=== PATIENT | female | born 1950 | race Caucasian/White ===

== ENCOUNTER 2017-01-08 07:40 | Day surgery (SDC) | payer OTHER ==
[~2017-01-08] VITALS: Ht 170.2 cm; Wt 54.8 kg
[~2017-01-08 07:40] MED LIST: DUONEB DPS3 ML IH; FLEET ENEMA133 ML PR; FOLVITE-DPS1 MG PO; IBUPROFEN200 MG PO; LINZESS290 MCG PO; MIRALAX PACKET17 GM PO; MOVANTIK25 MG PO; MS CONTIN DPS60 MG PO; MSIR DPS15 MG PO; NEURONTIN DPS300 MG PO; PERCOCET 5-3251 EACH PO; PHENERGAN DPS25 MG PO; SENOKOT DPS8.6 MG PO; XANAX DPS0.25 MG PO
== END 2017-01-08 14:25 | disposition home or self-care (01) ==
LOC: RAD.S 07:40 → EDSTATUS 09:00 → RAD.S 14:25
PROC: 0FB03ZX Excision of Liver, Percutaneous Approach, Diagnostic (ICD-10-PCS; principal; 2017-01-08)
DX: C78.7 Secondary malignant neoplasm of liver and intrahepatic bile duct (principal); C34.32 Malignant neoplasm of lower lobe, left bronchus or lung; Z79.899 Other long term (current) drug therapy; Z79.891 Long term (current) use of opiate analgesic